=== PATIENT | female | born 2005 | race Caucasian/White ===

== ENCOUNTER 2025-08-12 16:36 | Emergency (ER) | payer OTHER ==
[~2025-08-12] VITALS: Ht 147.3 cm; Wt 50.0 kg
[2025-08-12 16:37] VITALS: O2SAT 99
[2025-08-12 16:59] LABS: BASOPHILS % 0.1 % (0.0-2.0); EOSINOPHILS % 0.1 % (0.0-5.0); HEMATOCRIT. 40.8 % (36.0-48.0); HEMOGLOBIN. 14.1 g/dL (12.0-16.0); LYMPHOCYTES % 2.1 % (20.0-50.0); MEAN PLATELET VOLUME 8.2 fl (7.4-10.4); MONOCYTES % 3.1 % (2.0-8.0); NEUTROPHILS % 94.6 % (40.0-76.0); PLATELET 249 x1000/uL (130-400); RED BLOOD CELL COUNT 4.97 mill/uL (4.2-5.4); RED CELL DISTRIBUTION WIDTH 13.0 % (11.6-14.6)
[2025-08-12 17:15] LABS: CREATININE 0.8 mg/dL (0.6-1.0)
[2025-08-12] MEDS ORDERED: FAMOTIDINE 20MG TABLET PO SCH (17:15)
[2025-08-12] MEDS ORDERED: ONDANSETRON 4MG ODT PO ONE (17:15)
[2025-08-12 17:16] LABS: PROTEIN TOTAL 7.7 g/dL (6.0-8.3); UREA NITROGEN BLOOD 10 mg/dL (9-23)
[2025-08-12 17:17] LABS: ASPARTATE AMINOTRANSFERASE 26 IU/L (<34)
[2025-08-12 17:18] LABS: BILIRUBIN TOTAL 1.6 mg/dL (0.1-1.0)
[2025-08-12 17:52] LABS: HCG SCREEN NEGATIVE
[2025-08-12 18:26] LABS: COLOR URINE YELLOW (YELLOW); GLUCOSE URINE NEGATIVE (NEGATIVE); KETONES URINE 4+ (NEGATIVE); LEUKOCYTE ESTERASE URINE 1+ (NEGATIVE); NITRITE URINE NEGATIVE (NEGATIVE); OCCULT BLOOD URINE NEGATIVE (NEGATIVE); PH URINE 6.0 (4.5-8.0); PROTEIN URINE NEGATIVE (NEGATIVE); SPECIFIC GRAVITY URINE 1.026 (1.005-1.030); UROBILINOGEN URINE 0.2 E.U./dL (0.2-1.0)
[2025-08-12 18:34] LABS: *AMPHETAMINES SCREEN URINE NEGATIVE (NEGATIVE); *BARBITURATES SCREEN URINE NEGATIVE (NEGATIVE); *BENZODIAZEPINES SCREEN URINE NEGATIVE (NEGATIVE); *COCAINE SCREEN URINE NEGATIVE (NEGATIVE); METHADONE URINE SCREEN NEGATIVE (NEGATIVE); OPIATES URINE SCREEN NEGATIVE (NEGATIVE); PHENCYCLIDINE URINE SCREEN NEGATIVE (NEGATIVE)
[2025-08-12 18:35] LABS: CANNABINOID URINE SCREEN NEGATIVE (NEGATIVE); ECSTASY MDMA SCREEN URINE NEGATIVE (NEGATIVE)
[2025-08-12] MEDS: ONDANSETRON HCL 4MG/2ML INJ IV ONE (18:46)
[2025-08-12] MEDS: FAMOTIDINE 20MG/2ML VIAL IV ONE (18:46)
[2025-08-12] MEDS: SODIUM CHLORIDE 0.9% 1,000 ML IV ONE (18:46)
[2025-08-12] MEDS: MAGNESIUM/ALUMINUM HYDROXIDE/SIMETHICONE 30ML UDC PO ONE (19:10)
[2025-08-12] MEDS ORDERED: FAMO-135 MT (19:32)
[2025-08-12] MEDS ORDERED: ONDA4TAB50 MT (19:32)
[2025-08-12 19:37] LABS: CLARITY URINE SL HAZY (CLEAR)
[2025-08-12 19:44] LABS: INFLUENZA TYPE A Presumptive Negative (Pres. Neg.); INFLUENZA TYPE B Presumptive Negative (Pres. Neg.)
[2025-08-12 19:46] VITALS: BP 108/65; PULSE 107; RESP 18; TEMP 37; O2SAT 99
[2025-08-12 20:08] LABS: RBC URINE NONE SEEN /hpf (0-2)
[2025-08-12 20:09] LABS: BACTERIA URINE 1+; MUCUS URINE TRACE /lpf (< = 2+); SQUAMOUS EPITHELIAL CELL URINE 1+ /lpf (RARE/1+)
== END 2025-08-12 19:57 | disposition home or self-care (01) ==
LOC: ER 16:36
DX: R10.13 Epigastric pain (principal); K52.9 Noninfective gastroenteritis and colitis, unspecified; Z79.899 Other long term (current) drug therapy
CPT/HCPCS: 80053; 80305; 81003; 84703; 83690; 85025; 87804 ×2; 36415; 71045; 76705; 93005; 96361; 96374; 96375; 99285; 87426; J1308; J2405; J7030; Z7610; A4606